=== PATIENT | male | born 1980 | race Caucasian/White ===

== ENCOUNTER 2019-06-12 04:15 | Emergency (ER) | payer MEDICAID ==
[~2019-06-12] VITALS: Ht 180.3 cm; Wt 127.0 kg
--- NOTE | 2019-06-12 04:18 | NUR ---
PT TAKEN TO BED 6
--- NOTE | 2019-06-12 04:25 | NUR ---
38 Y/O M BIB FAMILY WITH C/O AUDITORY HALLUCINATIONS X1 WEEK. AAOX4. SPEECH CLEAR. EXHIBITING PARANOID BEHAVIOR. PT CONSTANTLY LOOKING AND WANDERING AROUND. PT STATED "I HAVEN'T SLEPT IN 2 WEEKS." PT DENIES SI AT THIS TIME. PER PT BROTHER "HE HASN'T BEEN TAKING HIS MEDICATIONS LIKE HE IS SUPPOSED TO. HE DOESNT SLEEP AND HE'S BEEN KEEPING US ALL AWAKE." C/O CHEST PAIN, 06/30. BP 185/121 AND HR 148. ERMD MADE AWARE OF PT STATUS. FAMILY AT BEDSIDE. WILL CONTINUE TO MONITOR.
[2019-06-12 04:27] VITALS: BP 185/121
--- NOTE | 2019-06-12 04:32 | NUR ---
Dr. Frausto examining patient.
--- NOTE | 2019-06-12 04:35 | NUR ---
PT REFUSING IV TREATMENT. PT STATED "I DONT WANT ANY IV BUT I WILL TAKE A PILL." DR. ALEXANDER MADE AWARE.
[2019-06-12] MEDS ORDERED: NACL 0.9% 1,000 ML IV ONE (04:40)
[2019-06-12] MEDS ORDERED: LORazepam 2 MG/ML VIAL IVP ONE (04:40)
[2019-06-12] MEDS ORDERED: ZIPRASIDONE MESYLATE 20 MG/ML VIAL IM ONE (04:45)
--- NOTE | 2019-06-12 05:00 | NUR ---
PT STATED "I FEEL BETTER. I'M READY TO GO HOME NOW." DR. ALEXANDER MADE AWARE.
[2019-06-12] MEDS ORDERED: HYDR12.51 PO (05:09)
[2019-06-12] MEDS ORDERED: QUET100T PO (05:09)
[2019-06-12] MEDS ORDERED: [UNRECOGNIZED DRUG - CODE] PO (05:09)
[2019-06-12] MEDS ORDERED: CETI-32 PO (05:09)
--- NOTE | 2019-06-12 05:14 | NUR ---
Dr. Frausto re-examining patient.
[2019-06-12] MEDS ORDERED: LORazepam 1 MG TAB PO ONE (05:15)
[2019-06-12 05:25] VITALS: BP 123/89
--- NOTE | 2019-06-12 05:25 | NUR ---
Patient discharged with v/s stable. Written and verbal after care instructions given and explained. Patient alert, oriented and verbalized understanding of instructions. Ambulatory with steady gait. All questions addressed prior to discharge. ID band removed. Patient advised to follow up with PMD. Rx of Zan given. Patient educated on indication of medication including possible reaction and side effects. Opportunity to ask questions provided and answered. Provided patient and family with mental health resources.
== END 2019-06-12 05:25 | disposition home or self-care (01) ==
LOC: MED 04:15
DX: F20.0 Paranoid schizophrenia (principal); R44.3 Hallucinations, unspecified; F17.210 Nicotine dependence, cigarettes, uncomplicated; Z79.899 Other long term (current) drug therapy
CPT/HCPCS: 96372; 99283; J3486; J2060